=== PATIENT | female | born 1940 | race Caucasian/White ===

== ENCOUNTER 2017-02-02 10:52 | Day surgery (SDC) | payer MEDICARE, MEDICAID ==
[2017-02-01 15:58] VITALS: BMI 28.3
[2017-02-02] MEDS ORDERED: Potassium Chloride 20 mEq/15 ml LIQ UD PO ONE (11:10)
[2017-02-02] MEDS ORDERED: Midazolam 2 MG/2 ML VIAL ONE (13:24)
--- NOTE | 2017-02-02 14:51 | CP.SDSHP ---
Same Day Surgery H & P - History Proposed Procedure: see Samantha consult. no change. - Allergies Allergies: Allergies aspirin Allergy (Mild, Verified 02/01/17 16:01) RASH iodine Allergy (Verified 02/01/17 16:01) RASH Short Stay Discharge - Short Stay Discharge Admitting Diagnosis/Reason for Visit: RULE OUT CORONARY ARTERY DISEASE/DYSPNEA Disposition: HOME/ ROUTINE
[2017-02-02] MEDS ORDERED: Sodium Chloride 0.9% 500 ML IV SCH (15:01)
--- NOTE | 2017-02-02 15:19 | CARDCATH ---
PROCEDURE DATE: 02/02/2017 PERFORMING PHYSICIAN: Alejandra Diaz MD. REFERRING PHYSICIAN: Ranjit Hargrove MD. PROCEDURE PERFORMED: Right heart catheterization, left heart catheterization, coronary angiography, left ventriculography. INDICATIONS: Evaluation of aortic stenosis. COMPLICATIONS: None. HISTORY: The patient is a 76-year-old female with a past medical history of hypertension, hyperchole sterolemia who presents with dyspnea on exertion. The patient had supraventricular tachycardia, whic h responded to medical therapy. Echocardiogram revealed severe aortic stenosis. She is referred for further management. DESCRIPTION OF PROCEDURE: After obtaining informed consent, the patient was prepped and draped in th e usual sterile fashion. Right and left heart catheterization was then performed. Coronary angiogra phy and left ventriculography were performed. All catheters were removed, and manual pressure was ap plied to achieve hemostasis. FINDINGS: HEMODYNAMICS: The right atrial pressure is 10 mmHg. Right ventricular pressure is 42/7. Pulmonary arterial pressure is 37/21 with mean of 26. Pulmonary capillary wedge pressure is 12. The calculate d Alejandra cardiac output is 7.3 liters per minute, and cardiac index is 4.09 liters per minute per meter squared. The aortic valve area is 0.73 cm2. CORONARIES: LEFT MAIN: Minor luminal irregularities. LEFT ANTERIOR DESCENDING ARTERY: 20% stenosis proximally. LEFT CIRCUMFLEX ARTERY: Minor luminal irregularities. RIGHT CORONARY ARTERY: Has minor luminal irregularities. LEFT VENTRICLE: Normal left ventricular systolic function. Ejection fraction is 55-60%. Severe aor tic stenosis. No mitral regurgitation. CONCLUSIONS: 1. Severe aortic stenosis. 2. No significant coronary artery disease. PLAN: The patient will need cardiothoracic surgical evaluation for aortic valve replacement. Alejandra Diaz MD cc: 258 TT: 02/02/2017 15:18:07 jn
--- NOTE | 2017-02-04 08:02 | CARD ---
APPROVED REPORT EXAM: Two-dimensional and M-mode echocardiogram with Doppler and color Doppler. Other Information Quality : GoodRhythm : NSR INDICATION R/O , RULE OUT CORONARY ARTERY DISEASE 2D DIMENSIONS LVOT Diameter2.0 (1.8-2.4cm) M-Mode DIMENSIONS RVDd0.73 (2.1-3.2cm)Left Atrium (MM)4.62 (2.5-4.0cm) IVSd1.08 (0.7-1.1cm)Aortic Root2.92 (2.2-3.7cm) LVDd4.51 (4.0-5.6cm)Aortic Cusp Exc.0.97 (1.5-2.0cm) PWd1.08 (0.7-1.1cm)FS (%) 42 % LVDs2.64 (2.0-3.8cm)LVEF (%)73 (>50%) Aortic Valve AoV Peak Wdmtgybb978.5cm/sAoV VTI90.0cmAO Peak GR.69mmHg LVOT Peak Jidoqeli053.9cm/sLVOT VTI24.83cmAO Mean GR.43mmHg JASMIN (VMAX)0.98ax0LOU (VTI)0.69kr5NS P 1/2 Jdgi425ih Mitral Valve MV E Oahmihoy893.6cm/sMV A Kbulwtrn619.1cm/sE/A ratio0.9 TDI E/Lateral E'0.0E/Medial E'0.0 Tricuspid Valve TR Peak Iibnotnt176qj/sTR Peak Gr.58zrBkJXPL63qbIc LEFT VENTRICLE The left ventricle is normal size. There is normal left ventricular wall thickness. The left ventricular function is normal. The left ventricular ejection fraction is within the normal range. The Ejection Fraction is >55%. No regional wall motion abnormalities noted. The left ventricular diastolic function is normal. Tissue Doppler imaging reveals abnormal left ventricular diastolic dysfunction. No left ventricle thrombus noted on this study. There is no ventricular septal defect visualized. There is no left ventricular aneurysm. There is no mass noted in the left ventricle. RIGHT VENTRICLE The right ventricle is normal size. There is normal right ventricular wall thickness. The right ventricular systolic function is normal. ATRIA The left atrium is moderately dilated. The right atrium size is normal. The interatrial septum is intact with no evidence for an atrial septal defect. AORTIC VALVE The aortic valve is normal in structure and function. There is mild to moderate aortic regurgitation. There is no significant aortic valve stenosis. There is severe valvular aortic stenosis. Calculated aortic valve area is .8 cm2 with maximum pressure gradient of mmHg and mean pressure gradient of mmHg. There is no aortic valvular vegetation. MITRAL VALVE The mitral valve is normal in structure and function. There is no evidence of mitral valve prolapse. There is no mitral valve stenosis. Mitral regurgitation is mild to moderate. TRICUSPID VALVE The tricuspid valve is normal in structure and function. There is trace to mild tricuspid regurgitation. Right ventricular systolic pressure is estimated at 30-40 mmHg. There is mild pulmonary hypertension. There is no tricuspid valve prolapse or vegetation. There is no tricuspid valve stenosis. PULMONIC VALVE The pulmonary valve is normal in structure and function. There is no pulmonic valvular regurgitation. There is no pulmonic valvular stenosis. GREAT VESSELS The aortic root is normal in size. The ascending aorta is normal in size. The pulmonary artery is normal. The IVC is normal in size and collapses >50% with inspiration. PERICARDIAL EFFUSION The pericardium appears normal. There is no pleural effusion. <Conclusion> There is normal left ventricular wall thickness. The left ventricular ejection fraction is within the normal range. The Ejection Fraction is >55%. There is mild to moderate aortic regurgitation. There is severe valvular aortic stenosis. Calculated aortic valve area is .8 cm2 with maximum pressure gradient of mmHg and mean pressure gradient of mmHg. Mitral regurgitation is mild to moderate. Right ventricular systolic pressure is estimated at 30-40 mmHg. There is mild pulmonary hypertension.
== END 2017-02-02 18:45 | disposition home or self-care (01) ==
LOC: C.CATHLAB 10:52
PROVIDERS: ATTEND Internal Medicine Cardiovascular Disease
DX: I35.0 Nonrheumatic aortic (valve) stenosis (principal); I47.1 Supraventricular tachycardia; I31.3 Pericardial effusion (noninflammatory); I27.2 Other secondary pulmonary hypertension; I10 Essential (primary) hypertension; E78.00 Pure hypercholesterolemia, unspecified
CPT/HCPCS: 93306; 93460; 93566; C1714; C1766; C1769; C1887; J1644; J2250; J3010; J7040; Q9967